=== PATIENT | female | born 1965 | race Caucasian/White ===

== ENCOUNTER → 2017-11-22 | Outpatient (CLI) | payer OTHER ==
--- NOTE | 2017-11-23 08:57 | MM ---
Reason for exam: clinical finding. Last mammogram was performed 7 years ago. History: Benign cyst aspiration of the left breast, 2004. Took estrogen for 4 years beginning at age 24. Physical Findings: Nurse Summary: 1cm nodule in the right breast at 6 o'clock (nurse je). MG 3D Diag Mammo W/Cad SHAILA Bilateral CC and MLO view(s) were taken. Prior study comparison: December 22, 2014, mammogram. March 12, 2014, mammogram. The breast tissue is heterogeneously dense. This may lower the sensitivity of mammography. Palpable marker 6 o'cock right breast. No significant new findings when compared with previous films. These results were verbally communicated with the patient and result sheet given to the patient on 11/22/17. ASSESSMENT: Incomplete: need additional imaging evaluation, BI-RAD 0 RECOMMENDATION: Ultrasound of the right breast.
--- NOTE | 2017-11-23 09:01 | USB ---
Reason for exam: additional evaluation requested from abnormal screening. History: Benign cyst aspiration of the left breast, 2004. Took estrogen for 4 years beginning at age 24. US Breast RT Right breast ultrasound includes all four quadrants, the retroareolar region and axilla. Finding demonstrates a 1.2 x 0.5 x 0.7cm mixed lesion at 6 o'clock corresponds to the palpable for which a biopsy is recommended and a 0.9 x 0.5 x 1.4cm solid lesion at 8 o'clock for which a biopsy is recommended. These results were verbally communicated with the patient and result sheet given to the patient on 11/22/17. ASSESSMENT: Suspicious, BI-RAD 4 RECOMMENDATION: Surgical consultation and ultrasound core biopsy of the right breast. Called Dr. Williamson with mammographic findings and has scheduled an appointment for the patient for 12/07/[address] Lauren Youssef ([place]). PRELIMINARY REPORT CALLED AND FAXED TO DR. YOUSSEF ON 11/23/17.
== END | disposition home or self-care (01) ==
LOC: RADMAMWWP 07:28
PROVIDERS: ATTEND Family Medicine
DX: N63.14 Unspecified lump in the right breast, lower inner quadrant (principal); R92.8 Other abnormal and inconclusive findings on diagnostic imaging of breast
CPT/HCPCS: 77066; 76641; G0279

== ENCOUNTER → 2017-12-10 | Day surgery (SDC) | payer OTHER ==
[2017-12-10 11:52] VITALS: RESP 16; TEMP 97.8; BMI 24.7
[2017-12-10 13:00] VITALS: BP 118/80; PULSE 66
--- NOTE | 2017-12-10 13:20 | MM ---
EXAMINATION TYPE: MG diagnostic mammo RT wo CAD, US biopsy breast VAD RT DATE OF EXAM: 12/10/2017 CLINICAL HISTORY: R92.8 ABNORMAL MAMMOGRAM. Abnormal ultrasound TECHNIQUE: Ultrasound guided core biopsy of right breast with clip placement and follow-up two-view mammogram. COMPARISON: Prior mammogram and ultrasound November 22, 2017 and older studies FINDINGS: The procedure of ultrasound guided core biopsy was explained to the patient. Benefits, alternatives, and risks were discussed. An informed consent was then obtained. The patient was placed in supine positioning for imaging and for the procedure. Preprocedure imaging redemonstrated oval shaped vague slightly hypoechoic area 8:00 position measuring 1 cm on long axis. No definitive area could be redemonstrated at 6:00 position even in scanning over patient's presumed palpable abnormality. The overlying skin was prepped and draped in usual sterile fashion. Lidocaine buffered with bicarbonate was used as anesthetic into the skin and subcutaneous tissue up to area of concern in the right breast 8:00 position. . Under ultrasound guidance, a 12-gauge vacuum assisted biopsy gun device was used to obtain 2 core samples. Following this, a biopsy clip was left in lesion. Following this repeat imaging of 6:00 position showed normal tissue without suspicious mass to warrant biopsy currently. 6:00 lesion was canceled for biopsy. The patient tolerated the procedure well without any immediate complication. The patient was kept in the radiology department for short stay after the procedure and then discharged home in stable condition. Postprocedure mammogram shows successful deployment of clip. IMPRESSION: Successful, uncomplicated ultrasound guided core biopsy of area of concern in the right breast 8:00 position, full pathology results to follow. Low index of suspicion noted at time of procedure. Pathology Results: Benign BREAST, RIGHT, CORE BIOPSY: FIBROCYSTIC CHANGES INCLUDING CYSTS, FIBROSIS, APOCRINE METAPLASIA AND SCLEROSING ADENOSIS WITH MICROCALCIFICATIONS. Recommendation Follow up ultrasound of the right breast in 6 months. TREMAYNE
== END ==
LOC: RADUSWWP 11:19
PROVIDERS: ATTEND Surgery
DX: N60.31 Fibrosclerosis of right breast (principal); N60.81 Other benign mammary dysplasias of right breast; N60.21 Fibroadenosis of right breast; R92.0 Mammographic microcalcification found on diagnostic imaging of breast; Z88.0 Allergy status to penicillin; Z88.2 Allergy status to sulfonamides; Z88.8 Allergy status to other drugs, medicaments and biological substances
CPT/HCPCS: 88305; 77065; 19083; A4648; J2001

== ENCOUNTER → 2018-08-06 | Outpatient (CLI) | payer OTHER ==
--- NOTE | 2018-08-07 09:21 | USB ---
Reason for exam: clinical finding. History: Benign US biopsy breast VAD RT of the right breast, December 10, 2017. Benign cyst aspiration of the left breast, 2004. Took estrogen for 4 years beginning at age 24. Indicated problem(s): palpable abnormality in the right breast. Physical Findings: Nurse Summary: 1cm nodule at 9 'clock movable (nurse dw). US Breast RT Right complete breast ultrasound includes all four quadrants, the retroareolar region and axilla. Finding demonstrates no cystic or solid lesion seen. These results were verbally communicated with the patient and result sheet given to the patient on 08/06/18. ASSESSMENT: Benign, BI-RAD 2 RECOMMENDATION: Routine screening mammogram of both breasts in 4 months. Back on schedule.
== END | disposition home or self-care (01) ==
LOC: RADUSWWP 14:52
PROVIDERS: ATTEND Family Medicine
DX: N64.9 Disorder of breast, unspecified (principal)

== ENCOUNTER 2018-09-05 13:53 | Emergency (ER) | payer OTHER ==
[2018-09-05 14:19] VITALS: BP 140/78
[2018-09-05] MEDS ORDERED: ONDANSETRON 4 MG/2 ML VIAL IVP STA (14:28)
[2018-09-05] MEDS ORDERED: SODIUM CHLORIDE 0.9% 1,000 ML IV STA (14:28)
[2018-09-05] MEDS ORDERED: MAG HYDROX/AL HYDROX/SIMETH 30 ML, HYOSCYAMINE ELIXIR 10 ML, CIMETIDINE HCL 300 MG, LID... PO STA ×4 (14:29)
[2018-09-05] MEDS ORDERED: FAMOTIDINE 20 MG/2 ML VIAL IV STA (14:29)
--- NOTE | 2018-09-05 14:35 | ED ---
Abdominal Pain HPI - General Chief Complaint: Abdominal Pain Stated Complaint: abd pain Time Seen by Provider: 09/05/18 14:20 Source: patient, RN notes reviewed Mode of arrival: ambulatory Limitations: no limitations - History of Present Illness Initial Comments: 52-year-old female presents to the emergency Department chief complaint of abdominal pain. Patient states started on Sunday and has progressed. It is worse when she lays down. She does get a few minutes relief after eating but then comes back worse. Patient states that she recently started taking Aleve secondary to tennis elbow. Patient states that she also was recent steroids. Patient complains of epigastric discomfort which is nonradiating. She states that she does have a history of reflux but only does dietary modifications has not been on any medications. She states she has mild constipation with no recent diarrhea or melena hematochezia. Patient denies any dysuria hematuria she's had a prior hysterectomy no other abdominal surgeries. - Related Data Home Medications Medication Instructions Recorded Confirmed diphenhydrAMINE [Benadryl] 50 mg PO HS PRN 09/05/18 09/05/18 Previous Rx's Medication Instructions Recorded Omeprazole 40 mg PO DAILY #14 capsule. 09/05/18 Allergies Allergy/AdvReac Type Severity Reaction Status Date / Time Penicillins Allergy Swelling Verified 09/05/18 14:47 povidone-iodine Allergy Rash/Hives Verified 09/05/18 14:47 [From Betadine] soap [From Betadine] Allergy Rash/Hives Verified 09/05/18 14:47 Sulfa (Sulfonamide Allergy Rash/Hives Verified 09/05/18 14:47 Antibiotics) Review of Systems ROS Statement: Those systems with pertinent positive or pertinent negative responses have been documented in the HPI. ROS Other: All systems not noted in ROS Statement are negative. Past Medical History Past Medical History: Atrial Fibrillation, GERD/Reflux, Osteoarthritis (OA) History of Any Multi-Drug Resistant Organisms: None Reported Past Surgical History: Hernia Repair, Hysterectomy Additional Past Surgical History / Comment(s): skin cancer to back Past Anesthesia/Blood Transfusion Reactions: Motion Sickness Past Psychological History: No Psychological Hx Reported Smoking Status: Former smoker General Exam Limitations: no limitations General appearance: alert, in no apparent distress Head exam: Present: atraumatic, normocephalic, normal inspection Eye exam: Present: normal appearance, PERRL, EOMI. Absent: scleral icterus, conjunctival injection, periorbital swelling Respiratory exam: Present: normal lung sounds bilaterally. Absent: respiratory distress, wheezes, rales, rhonchi, stridor Cardiovascular Exam: Present: regular rate, normal rhythm, normal heart sounds. Absent: systolic murmur, diastolic murmur, rubs, gallop, clicks GI/Abdominal exam: Present: soft, tenderness (Minimal epigastric), normal bowel sounds. Absent: distended, guarding, rebound, rigid Back exam: Absent: CVA tenderness (R), CVA tenderness (L) Skin exam: Present: warm, dry, intact, normal color. Absent: rash Course Vital Signs 09/05/18 14:15 Temperature 98.2 F Pulse Rate 67 Respiratory 18 Rate Blood Pressure 140/78 O2 Sat by Pulse 99 Oximetry Medical Decision Making - Medical Decision Making 52-year-old female sent upper epigastric discomfort. Patient did have relief from GI cocktail. Patient has normal lab work x-ray shows mild constipation otherwise nonspecific. Patient will be started on omeprazole 40 mg once a little follow-up Dr. Young for possible EGD in which she seen in fast we discussed return parameters and dietary changes. - Lab Data Result diagrams: 09/05/18 14:30 09/05/18 14:30 Lab Results 09/05/18 09/05/18 09/05/18 Range/Units 14:30 14:30 14:30 WBC 6.5 (3.8-10.6) k/uL RBC 4.52 (3.80-5.40) m/uL Hgb 13.3 (11.4-16.0) gm/dL Hct 42.5 (34.0-46.0) % MCV 94.0 (80.0-100.0) fL MCH 29.5 (25.0-35.0) pg MCHC 31.4 (31.0-37.0) g/dL RDW 12.6 (11.5-15.5) % Plt Count 233 (150-450) k/uL Neutrophils % 64 % Lymphocytes % 22 % Monocytes % 6 % Eosinophils % 6 % Basophils % 1 % Neutrophils # 4.1 (1.3-7.7) k/uL Lymphocytes # 1.4 (1.0-4.8) k/uL Monocytes # 0.4 (0-1.0) k/uL Eosinophils # 0.4 (0-0.7) k/uL Basophils # 0.1 (0-0.2) k/uL Sodium 140 (137-145) mmol/L Potassium 4.2 (3.5-5.1) mmol/L Chloride 104 (98-107) mmol/L Carbon Dioxide 28 (22-30) mmol/L Anion Gap 8 mmol/L BUN 13 (7-17) mg/dL Creatinine 0.73 (0.52-1.04) mg/dL Est GFR (CKD-EPI)AfAm >90 (>60 ml/min/1.73 sqM) Est GFR (CKD-EPI)NonAf >90 (>60 ml/min/1.73 sqM) Glucose 104 H (74-99) mg/dL Calcium 10.2 (8.4-10.2) mg/dL Total Bilirubin 0.6 (0.2-1.3) mg/dL AST 19 (14-36) U/L ALT 18 (9-52) U/L Alkaline Phosphatase 61 (38-126) U/L Total Protein 8.2 (6.3-8.2) g/dL Albumin 4.7 (3.5-5.0) g/dL Amylase 85 (30-110) U/L Lipase 239 (23-300) U/L Urine Color Light Yellow Urine Appearance Clear (Clear) Urine pH 6.5 (5.0-8.0) Ur Specific [place] 1.006 (1.001-1.035) Urine Protein Negative (Negative) Urine Glucose (UA) Negative (Negative) Urine Ketones Negative (Negative) Urine Blood Negative (Negative) Urine Nitrite Negative (Negative) Urine Bilirubin Negative (Negative) Urine Urobilinogen <2.0 (<2.0) mg/dL Ur Leukocyte Esterase Trace H (Negative) Urine RBC <1 (0-5) /hpf Urine WBC 1 (0-5) /hpf Urine Mucus Rare H (None) /hpf Disposition Clinical Impression: Gastritis Disposition: HOME SELF-CARE Condition: Stable Instructions: Gastritis (ED) Additional Instructions: Please return to the Emergency Department if symptoms worsen or any other concerns. Prescriptions: Omeprazole 40 mg PO DAILY #14 capsule.dr Is patient prescribed a controlled substance at d/c from ED?: No Referrals: Cipriano Williamson DO [Primary Care Provider] - 1-2 days Joyce Amaral MD [STAFF PHYSICIAN] - 1-2 days Time of Disposition: 15:54
[2018-09-05 15:10] LABS: Appearance,Urine Clear (Clear); Basophils # (A) 0.1 k/uL (0-0.2); Basophils % (A) 1 %; Bilirubin,Urine Negative (Negative); Blood,Urine Negative (Negative); Color,Urine Light Yellow; Eosinophils # (A) 0.4 k/uL (0-0.7); Eosinophils % (A) 6 %; Glucose,Urine (UA) Negative (Negative); HCT 42.5 % (34.0-46.0); HGB 13.3 gm/dL (11.4-16.0); Ketones,Urine Negative (Negative); Leukocyte Esterase,Urine Trace (Negative); Lymphocytes # (A) 1.4 k/uL (1.0-4.8); Lymphocytes % (A) 22 %; MCH 29.5 pg (25.0-35.0); MCHC 31.4 g/dL (31.0-37.0); Mean Platelet Volume 7.1; Monocytes # (A) 0.4 k/uL (0-1.0); Monocytes % (A) 6 %; Mucus,Urine Rare /hpf; Neutrophils # (A) 4.1 k/uL (1.3-7.7); Neutrophils % (A) 64 %; Nitrite,Urine Negative (Negative); PH, Urine 6.5 (5.0-8.0); Platelet Count 233 k/uL (150-450); Protein,Urine Negative (Negative); RBC 4.52 m/uL (3.80-5.40); RBC,Urine <1 /hpf (0-5); RDW 12.6 % (11.5-15.5); Specific Gravity,Urine 1.006 (1.001-1.035); Urobilinogen,Urine <2.0 mg/dL (<2.0); WBC 6.5 k/uL (3.8-10.6); WBC,Urine 1 /hpf (0-5)
--- NOTE | 2018-09-05 15:23 | XR ---
EXAMINATION TYPE: XR KUB DATE OF EXAM: 09/05/2018 COMPARISON: NONE HISTORY: Epigastric pain TECHNIQUE: One view abdominal series FINDINGS: The osseous structures are intact. The bowel gas pattern is nonspecific. Lung bases are clear. Soft tissue ossification along the right femoral greater trochanter. Curvature of the spine noted. IMPRESSION: 1. Nonspecific abdomen.
[2018-09-05 15:26] LABS: ALT 18 U/L (9-52); AST 19 U/L (14-36); Albumin 4.7 g/dL (3.5-5.0); Alkaline Phosphatase 61 U/L (38-126); Amylase 85 U/L (30-110); Anion Gap 8 mmol/L; Blood Urea Nitrogen 13 mg/dL (7-17); Calcium 10.2 mg/dL (8.4-10.2); Carbon Dioxide 28 mmol/L (22-30); Chloride 104 mmol/L (98-107); Glucose 104 mg/dL (74-99); Lipase 239 U/L (23-300); Potassium 4.2 mmol/L (3.5-5.1); Sodium 140 mmol/L (137-145); Total Bilirubin 0.6 mg/dL (0.2-1.3); Total Protein 8.2 g/dL (6.3-8.2)
[2018-09-05 16:00] VITALS: PULSE 70; RESP 16; TEMP 98
== END 2018-09-05 16:00 | disposition home or self-care (01) ==
LOC: EC 13:53
DX: K29.70 Gastritis, unspecified, without bleeding (principal); K59.00 Constipation, unspecified; K21.9 Gastro-esophageal reflux disease without esophagitis; Z87.891 Personal history of nicotine dependence; Z85.828 Personal history of other malignant neoplasm of skin; Z90.710 Acquired absence of both cervix and uterus; Z98.890 Other specified postprocedural states; Z88.0 Allergy status to penicillin; Z88.2 Allergy status to sulfonamides; Z88.8 Allergy status to other drugs, medicaments and biological substances; Z91.048 Other nonmedicinal substance allergy status
CPT/HCPCS: 36415; 80053; 82150; 83690; 85025; 81001; 74018; 99284; 96374; 96375; 96361; J2405

== ENCOUNTER → 2019-03-20 | Outpatient (CLI) | payer OTHER ==
--- NOTE | 2019-03-21 09:58 | MM ---
Reason for exam: screening (asymptomatic). Last mammogram was performed 1 year and 3 months ago. History: Family history of breast cancer in paternal aunt. Benign US biopsy breast VAD RT of the right breast, December 10, 2017. Benign cyst aspiration of the left breast, 2004. Took estrogen for 4 years beginning at age 24. Physical Findings: A clinical breast exam by your physician is recommended on an annual basis and results should be correlated with mammographic findings. MG 3D Screening Mammo W/Cad Bilateral CC and MLO view(s) were taken. Prior study comparison: December 10, 2017, right breast MG diagnostic mammo RT wo CAD. November 22, 2017, bilateral MG 3d diag mammo w/cad SHAILA. The breast tissue is heterogeneously dense. This may lower the sensitivity of mammography. No significant changes when compared with prior studies. ASSESSMENT: Benign, BI-RAD 2 RECOMMENDATION: Routine screening mammogram of both breasts in 1 year. Manage patient on a clinical basis.
== END ==
LOC: RADMAMWWP 11:04
PROVIDERS: ATTEND Family Medicine
DX: Z12.31 Encounter for screening mammogram for malignant neoplasm of breast (principal)
CPT/HCPCS: 77063; 77067

== ENCOUNTER → 2020-08-04 | Outpatient (CLI) | payer OTHER ==
--- NOTE | 2020-08-04 17:01 | ECHOF ---
Referral Reason:R07.9 Chest pain, unspecified MEASUREMENTS -------- HEIGHT: 160.0 cm WEIGHT: 61.2 kg BP: RVIDd: 3.3 cm (< 3.3) IVSd: 1.2 cm (0.6 - 1.1) LVIDd: 3.4 cm (3.9 - 5.3) LVPWd: 1.4 cm (0.6 - 1.1) IVSs: 1.5 cm LVIDs: 2.4 cm LVPWs: 1.7 cm LAESV Index (A-L): 25.85 ml/m Ao Diam: 2.7 cm (2.0 - 3.7) AV Cusp: 1.8 cm (1.5 - 2.6) MV EXCURSION: 18.270 mm (> 18.000) MV EF SLOPE: 70 mm/s (70 - 150) EPSS: 0.1 cm MV E Velasquez: 0.80 m/s MV DecT: 229 ms MV A Velasquez: 0.36 m/s MV E/A Ratio: 2.22 RAP: 5.00 mmHg RVSP: 29.26 mmHg FINDINGS -------- This was a technically adequate study. The left ventricular size is normal. There is mild concentric left ventricular hypertrophy. Overa ll left ventricular systolic function is normal with, an EF between 55 - 60 %. The diastolic fillin g pattern is normal for the age of the patient 7.24. The right ventricle is normal in size. Normal LA size by volume 22+/-6 ml/m2. The right atrial size is normal. Interatrial and interventricular septum intact. The aortic valve is trileaflet and appears structurally normal. There is no evidence of aortic regu rgitation. There is no evidence of aortic stenosis. Mild mitral regurgitation is present. Mild tricuspid regurgitation present. There is no evidence of pulmonary hypertension. The right v entricular systolic pressure, as measured by Doppler, is 29.26mmHg. Trace/mild (physiologic) pulmonic regurgitation. The aortic root size is normal. The inferior vena cava is mildly dilated. There is no pericardial effusion. CONCLUSIONS -------- 1. The left ventricular size is normal. 2. There is mild concentric left ventricular hypertrophy. 3. Overall left ventricular systolic function is normal with, an EF between 55 - 60 %. 4. The diastolic filling pattern is normal for the age of the patient 7.24 5. Mild mitral regurgitation is present. 6. Mild tricuspid regurgitation present. 7. Trace/mild (physiologic) pulmonic regurgitation. 8. The inferior vena cava is mildly dilated. SERVER SOFTWARE ENGINEER: Mary Redd RDCS
--- NOTE | 2020-08-04 17:39 | EST ---
EXERCISE STRESS AGE: 54 SEX: Female HT: 5'3" WT: 135 pounds PROTOCOL: Rashid. STAGE: III DURATION OF EXERCISE: 9:00 HEART RATE REST: 65 BLOOD PRESSURE REST: 122/78 MAXIMUM HEART RATE ACHIEVED: 141 MAXIMUM BLOOD PRESSURE: 148/73 85% MPHR: 141 100% MPHR: 166 METS: 10.5 INDICATIONS: Chest pain. CLINICAL INFORMATION: Baseline EKG shows sinus rhythm, normal axis, normal intervals. Patient exercised on Rashid protocol for a total of 9 minutes, achieving 10 METS, 85% of predicted maximal heart rate, without chest pain. At peak exercise there was 1.[address]-segment depression noted in the inferolateral lead. CONCLUSIONS: 1. Good exercise tolerance. 2. Abnormal stress test by EKG criteria. MMANTELMOL / IJN: [id number] /
== END | disposition home or self-care (01) ==
LOC: RADNMMAIN 10:31
PROVIDERS: ATTEND Family Medicine
DX: R94.39 Abnormal result of other cardiovascular function study (principal); I08.8 Other rheumatic multiple valve diseases
CPT/HCPCS: 93017; 93306

== ENCOUNTER 2022-02-11 14:38 | Emergency (ER) | payer OTHER ==
[2022-02-11] MEDS ORDERED: SODIUM CHLORIDE 0.9% 1,000 ML IV STA ×2 (16:14→19:03)
[2022-02-11] MEDS ORDERED: ONDANSETRON 4 MG/2 ML VIAL IVP STA (16:14)
[2022-02-11] MEDS ORDERED: DICYCLOMINE 10 MG/ML 2 ML AMP IM STA (16:14)
--- NOTE | 2022-02-11 16:22 | ED ---
General Adult HPI - General Chief complaint: Abdominal Pain Stated complaint: Abd pain Time Seen by Provider: 02/11/22 16:04 Source: patient, RN notes reviewed Mode of arrival: ambulatory Limitations: no limitations - History of Present Illness Initial comments: 56-year-old female presents to the emergency Department with complaints of mid abdominal cramping, onset . Patient states she had one episode of vomiting in the early hours of Sunday morning with ongoing episodes of cramping discomfort. Patient states she took a stool softener thinking perhaps she was constipated. Reports having a bowel movement yesterday followed by a few episo grant of runny diarrhea. States she has continued to have intermittent episodes of cramping discomfort. States oral intake worsens her discomfort. Denies fever, chills, headache, chest pain, shortness of breath, cough, hematochezia, hematuria, or dysuria. - Related Data Home Medications Medication Instructions Recorded Confirmed diphenhydrAMINE [Benadryl] 50 mg PO HS PRN 09/05/18 09/05/18 Previous Rx's Medication Instructions Recorded Omeprazole 40 mg PO DAILY #14 capsule. 09/05/18 Nitrofurantoin Macrocrystal 100 mg PO BID 5 Days #10 capsule 02/11/22 [Nitrofurantoin] Ondansetron Odt [Zofran Odt] 4 mg PO Q8HR PRN #10 tab 02/11/22 Allergies Allergy/AdvReac Type Severity Reaction Status Date / Time Penicillins Allergy Swelling Verified 02/11/22 15:01 povidone-iodine Allergy Rash/Hives Verified 02/11/22 15:01 [From Betadine] soap [From Betadine] Allergy Rash/Hives Verified 02/11/22 15:01 Sulfa (Sulfonamide Allergy Rash/Hives Verified 02/11/22 15:01 Antibiotics) Review of Systems ROS Statement: Those systems with pertinent positive or pertinent negative responses have been documented in the HPI. ROS Other: All systems not noted in ROS Statement are negative. Past Medical History Past Medical History: Atrial Fibrillation, GERD/Reflux, Osteoarthritis (OA) History of Any Multi-Drug Resistant Organisms: None Reported Past Surgical History: Hernia Repair, Hysterectomy Additional Past Surgical History / Comment(s): skin cancer to back Past Anesthesia/Blood Transfusion Reactions: Motion Sickness Past Psychological History: No Psychological Hx Reported Smoking Status: Never smoker Past Alcohol Use History: Occasional Past Drug Use History: None Reported General Exam Limitations: no limitations (Well-developed, well-nourished female in no acute distress. Initial temperature 97.7, pulse 79, respirations 16, blood pressure 126/78, pulse ox 100% on room air.) General appearance: alert, in no apparent distress Eye exam: Present: normal appearance. Absent: scleral icterus, conjunctival injection ENT exam: Present: normal exam, normal oropharynx, mucous membranes moist Neck exam: Present: normal inspection, full ROM. Absent: tenderness, meningismus, lymphadenopathy Respiratory exam: Present: normal lung sounds bilaterally. Absent: respiratory distress, wheezes, rales, rhonchi, stridor Cardiovascular Exam: Present: regular rate, normal rhythm, normal heart sounds. Absent: systolic murmur, diastolic murmur, rubs, gallop, clicks GI/Abdominal exam: Present: soft, normal bowel sounds. Absent: distended, tenderness, guarding, rebound, rigid Extremities exam: Present: normal inspection, full ROM, normal capillary refill. Absent: tenderness, pedal edema, joint swelling, calf tenderness Back exam: Present: normal inspection. Absent: CVA tenderness (R), CVA te nderness (L) Neurological exam: Present: alert, oriented X3, CN II-XII intact Psychiatric exam: Present: normal affect, normal mood Skin exam: Present: warm, dry, intact, normal color. Absent: rash Course Vital Signs 02/11/22 02/11/22 15:01 18:44 Temperature 97.7 F 98.2 F Pulse Rate 79 67 Respiratory 16 14 Rate Blood Pressure 126/78 120/65 O2 Sat by Pulse 100 99 Oximetry - Reevaluation(s) Reevaluation #1: 02/11/22 18:00 Patient appears to be resting comfortably, however states her pain is relatively unchanged does feel that it is tolerable at this time. No nausea or vomiting currently. Patient does wish to proceed with CT. 02/11/22 19:00 Patient's iodine ALLERGY was discussed. States she thinks she has had CT previously with contrast however is uncertain therefore she will be premedicated. 02/11/22 20:[address] without adverse reaction. Findings show gastroenteritis consistent with physical exam and patient history. She is updated on results and will be discharged home with a prescription for Zofran. We did discuss results of her urinalysis. As she is asymptomatic at this time, she will be prescribed an antibiotic which will be sent to the pharmacy and instructed to take it if she develops symptoms within the next 24-48 hours. Patient verbalizes understanding and agrees with this plan. Medical Decision Making - Medical Decision Making 56-year-old female with a past medical history of GERD and atrial fibrillation p resents to the emergency department for evaluation of mid abdominal cramping onset 48 hours prior to arrival. Upon assessment, patient is well-appearing and in no acute distress. Her abdomen is soft with minimal tenderness upon palpation. Describes her discomfort as a cramping sensation. Does complain of accompanying nausea and vomiting. Patient was given IV fluids, Bentyl, and Zofran with improvement. Laboratory studies were reviewed and are unremarkable. Urinalysis does show large leukocyte esterase with [address] of the abdomen and pelvis shows possible gastroenteritis. Patient will be discharged home with a prescription for Zofran as well as an antibiotic for evidence of UTI. Instructed to take it if she develops symptoms. Encouraged follow-up with her PCP for recheck in 48 hours. Return parameters discussed in detail. Patient verbalizes understanding and agrees with this plan. Attending: Korey. - Lab Data Result diagrams: 02/11/22 16:29 02/11/22 16:29 Lab Results 02/11/22 02/11/22 02/11/22 Range/Units 16:29 16:29 16:29 WBC 6.5 (3.8-10.6) k/uL RBC 4.23 (3.80-5.40) m/uL Hgb 13.6 (11.4-16.0) gm/dL Hct 41.0 (34.0-46.0) % MCV 97.0 (80.0-100.0) fL MCH 32.1 (25.0-35.0) pg MCHC 33.1 (31.0-37.0) g/dL RDW 13.5 (11.5-15.5) % Plt Count 237 (150-450) k/uL MPV 7.6 Neutrophils % 68 % Lymphocytes % 20 % Monocytes % 6 % Eosinophils % 3 % Basophils % 1 % Neutrophils # 4.4 (1.3-7.7) k/uL Lymphocytes # 1.3 (1.0-4.8) k/uL Monocytes # 0.4 (0-1.0) k/uL Eosinophils # 0.2 (0-0.7) k/uL Basophils # 0.0 (0-0.2) k/uL Sodium 139 (137-145) mmol/L Potassium 4.1 (3.5-5.1) mmol/L Chloride 104 (98-107) mmol/L Carbon Dioxide 29 (22-30) mmol/L Anion Gap 6 mmol/L BUN 12 (7-17) mg/dL Creatinine 0.69 (0.52-1.04) mg/dL Est GFR (CKD-EPI)AfAm >90 (>60 ml/min/1.73 sqM) Est GFR (CKD-EPI)NonAf >90 (>60 ml/min/1.73 sqM) Glucose 99 (74-99) mg/dL Plasma Lactic Acid Adarsh (0.7-2.0) mmol/L Calcium 9.2 (8.4-10.2) mg/dL Total Bilirubin 0.8 (0.2-1.3) mg/dL AST 19 (14-36) U/L ALT 12 (4-34) U/L Alkaline Phosphatase 57 (38-126) U/L Total Protein 7.5 (6.3-8.2) g/dL Albumin 4.3 (3.5-5.0) g/dL Lipase 115 (23-300) U/L Urine Color Light Yellow Urine Appearance Cloudy H (Clear) Urine pH 5.5 (5.0-8.0) Ur Specific [place] 1.007 (1.001-1.035) Urine Protein Negative (Negative) Urine Glucose (UA) Negative (Negative) Urine Ketones Negative (Negative) Urine Blood Negative (Negative) Urine Nitrite Negative (Negative) Urine Bilirubin Negative (Negative) Urine Urobilinogen <2.0 (<2.0) mg/dL Ur Leukocyte Esterase Large H (Negative) Urine RBC 1 (0-5) /hpf Urine WBC 38 H (0-5) /hpf Ur Squamous Epith Cells 1 (0-4) /hpf 02/11/22 Range/Units 16:29 WBC (3.8-10.6) k/uL RBC (3.80-5.40) m/uL Hgb (11.4-16.0) gm/dL Hct (34.0-46.0) % MCV (80.0-100.0) fL MCH (25.0-35.0) pg MCHC (31.0-37.0) g/dL RDW (11.5-15.5) % Plt Count (150-450) k/uL MPV Neutrophils % % Lymphocytes % % Monocytes % % Eosinophils % % Basophils % % Neutrophils # (1.3-7.7) k/uL Lymphocytes # (1.0-4.8) k/uL Monocytes # (0-1.0) k/uL Eosinophils # (0-0.7) k/uL Basophils # (0-0.2) k/uL Sodium (137-145) mmol/L Potassium (3.5-5.1) mmol/L Chloride (98-107) mmol/L Carbon Dioxide (22-30) mmol/L Anion Gap mmol/L BUN (7-17) mg/dL Creatinine (0.52-1.04) mg/dL Est GFR (CKD-EPI)AfAm (>60 ml/min/1.73 sqM) Est GFR (CKD-EPI)NonAf (>60 ml/min/1.73 sqM) Glucose (74-99) mg/dL Plasma Lactic Acid Adarsh 0.7 (0.7-2.0) mmol/L Calcium (8.4-10.2) mg/dL Total Bilirubin (0.2-1.3) mg/dL AST (14-36) U/L ALT (4-34) U/L Alkaline Phosphatase (38-126) U/L Total Protein (6.3-8.2) g/dL Albumin (3.5-5.0) g/dL Lipase (23-300) U/L Urine Color Urine Appearance (Clear) Urine pH (5.0-8.0) Ur Specific [place] (1.001-1.035) Urine Protein (Negative) Urine Glucose (UA) (Negative) Urine Ketones (Negative) Urine Blood (Negative) Urine Nitrite (Negative) Urine Bilirubin (Negative) Urine Urobilinogen (<2.0) mg/dL Ur Leukocyte Esterase (Negative) Urine RBC (0-5) /hpf Urine WBC (0-5) /hpf Ur Squamous Epith Cells (0-4) /hpf - Radiology Data Radiology results: report reviewed, image reviewed CT of the abdomen and pelvis with contrast was obtained. Report was reviewed in its entirety. Impression per Dr. Alvares is there is mild abdominal ascites. There are multiple loops of jejunum in the mid abdomen with wall thickening that could be some gastroenteritis. No free air. Mild atelectasis at the lung bases. Disposition Clinical Impression: Abdominal pain, Nausea & vomiting, Urinary tract infection, Gastroenteritis Disposition: HOME SELF-CARE Condition: Stable Instructions (If sedation given, give patient instructions): Urinary Tract Infection in Women (ED), Gastroenteritis (ED) Additional Instructions: Take Zofran if needed for upset stomach. Antibiotic prescribed for UTI. Take if you become symptomatic as discussed. Consider a bland diet for the first 48 hours, then progress as tolerated. Follow-up with your PCP for a recheck in 48-72 hours. Return to the emergency department with any new, worsening, or concerning sy mptoms. Prescriptions: Nitrofurantoin Macrocrystal [Nitrofurantoin] 100 mg PO BID 5 Days #10 capsule Ondansetron Odt [Zofran Odt] 4 mg PO Q8HR PRN #10 tab PRN Reason: Nausea Is patient prescribed a controlled substance at d/c from ED?: No Referrals: Cipriano Williamson DO [Primary Care Provider] - 1-2 days Time of Disposition: 20:53
[2022-02-11 16:53] LABS: Basophils % (A) 1 %; Eosinophils # (A) 0.2 k/uL (0-0.7); Eosinophils % (A) 3 %; HGB 13.6 gm/dL (11.4-16.0); Lymphocytes # (A) 1.3 k/uL (1.0-4.8); Lymphocytes % (A) 20 %; MCH 32.1 pg (25.0-35.0); MCHC 33.1 g/dL (31.0-37.0); Mean Platelet Volume 7.6; Monocytes # (A) 0.4 k/uL (0-1.0); Monocytes % (A) 6 %; Neutrophils # (A) 4.4 k/uL (1.3-7.7); Neutrophils % (A) 68 %; Platelet Count 237 k/uL (150-450); RBC 4.23 m/uL (3.80-5.40); RDW 13.5 % (11.5-15.5); WBC 6.5 k/uL (3.8-10.6)
[2022-02-11 17:10] LABS: Appearance,Urine Cloudy (Clear); Bilirubin,Urine Negative (Negative); Blood,Urine Negative (Negative); Color,Urine Light Yellow; Glucose,Urine (UA) Negative (Negative); Ketones,Urine Negative (Negative); Leukocyte Esterase,Urine Large (Negative); Nitrite,Urine Negative (Negative); PH, Urine 5.5 (5.0-8.0); Protein,Urine Negative (Negative); RBC,Urine 1 /hpf (0-5); Specific Gravity,Urine 1.007 (1.001-1.035); Squamous Epithelial Cell,Urine 1 /hpf (0-4); Urobilinogen,Urine <2.0 mg/dL (<2.0); WBC,Urine 38 /hpf (0-5)
[2022-02-11 17:13] LABS: African American GFR (CKD) >90 (>60 ml/min/1.73 sqM); Albumin 4.3 g/dL (3.5-5.0); Blood Urea Nitrogen 12 mg/dL (7-17); Calcium 9.2 mg/dL (8.4-10.2); Carbon Dioxide 29 mmol/L (22-30); Lipase 115 U/L (23-300); Non-African American GFR(CKD) >90 (>60 ml/min/1.73 sqM); Potassium 4.1 mmol/L (3.5-5.1); Sodium 139 mmol/L (137-145); Total Bilirubin 0.8 mg/dL (0.2-1.3); Total Protein 7.5 g/dL (6.3-8.2)
[2022-02-11 17:29] LABS: ALT 12 U/L (4-34); AST 19 U/L (14-36); Alkaline Phosphatase 57 U/L (38-126); Anion Gap 6 mmol/L; Chloride 104 mmol/L (98-107); Glucose 99 mg/dL (74-99)
[2022-02-11 18:47] VITALS: BP 120/65; PULSE 67; RESP 14; TEMP 98.2
[2022-02-11] MEDS ORDERED: FAMOTIDINE 20 MG/2 ML VIAL IV STA (19:03)
[2022-02-11] MEDS ORDERED: methylPREDNISolone SOD SUCCI 125 MG/2 ML VIAL IV STA (19:03)
[2022-02-11] MEDS ORDERED: diphenhydrAMINE 50 MG/ML 1 ML VIAL IVP STA (19:03)
--- NOTE | 2022-02-11 20:13 | CT ---
EXAMINATION TYPE: CT abdomen pelvis w con DATE OF EXAM: 02/11/2022 COMPARISON: None HISTORY: Abdominal pain, nausea, vomiting and diarrhea. CT DLP: 666.7 mGycm Automated exposure control for dose reduction was used. CONTRAST: Performed with IV Contrast, patient injected with 100ml mL of Isovue 300. Images obtained from the diaphragm to the floor the pelvis with IV contrast. There are some mild subsegmental atelectasis at the lung bases. No pleural effusion. Heart size is no rmal. No pericardial effusion. There are a few small hepatic cysts up to 1.5 cm. Spleen is intact. Th ere is no pancreatic mass. The stomach is intact. Gallbladder appears normal. There is no adrenal mass. Kidneys show satisfactory contrast opacification. There is no hydronephrosi s. Ureters are not dilated. There is low-density free fluid in the pelvis. Bladder distends smoothly. There is no retroperitoneal adenopathy. There is some mild wall thickening of loops of small bowel in the mid abdomen. No evidence of a bowel obstruction. Appendix not seen. No sign thickened appendix. The bony structures are intact. Bony pel vis is intact. Hip joints appear normal. Sacroiliac joints are normal. Lumbar vertebrae have normal a lignment. Disc spaces are fairly normal. IMPRESSION: There is mild abdominal ascites. There are multiple loops of jejunum in the mid abdomen with wall thi ckening that could be some gastroenteritis. No free air. Mild atelectasis at the lung bases.
== END 2022-02-11 21:10 | disposition home or self-care (01) ==
LOC: EC 14:38
DX: K52.9 Noninfective gastroenteritis and colitis, unspecified (principal); N39.0 Urinary tract infection, site not specified; K21.9 Gastro-esophageal reflux disease without esophagitis; Z79.899 Other long term (current) drug therapy
CPT/HCPCS: 36415; 80053; 83605; 83690; 85025; 81001; 87086; 74177; 99284; 96374; 96375 ×3; 96361 ×4; J1200; J0500; J2930; J2405; Q9967

== ENCOUNTER 2025-06-05 06:24 | Day surgery (SDC) | payer OTHER ==
[2025-06-05] MEDS ORDERED: LIDOCAINE 1% (10MG/ML) FOR IV START INTRADERMA PRN (06:49)
[2025-06-05 06:54] VITALS: RESP 16; TEMP 96.9
[2025-06-05] MEDS: LACTATED RINGERS 1,000 ML IV SCH (06:59)
[2025-06-05] MEDS: IV FLUID CONTINUATION 1,000 ML IV ONE (07:00)
[2025-06-05] MEDS ORDERED: PROPOFOL 10 MG/ML 20 ML VIAL IV ONE (07:24)
[2025-06-05] MEDS ORDERED: fentaNYL (PF) 50 MCG/ML 2 ML AMP ONE (07:24)
[2025-06-05] MEDS ORDERED: LIDOCAINE 1% INJ 10MG/ML (20 ML MDV) ONE (07:24)
[2025-06-05] MEDS ORDERED: MIDAZOLAM 2 MG/2 ML VIAL ONE (07:24)
--- NOTE | 2025-06-05 07:45 | P.PCN ---
Date of Procedure: 06/05/25 Procedure(s) Performed: Brief history: Patient is a pleasant 59-year-old white female scheduled for an elective upper endoscopy as well as colonoscopy as a part of evaluation of evaluation of epigastric pain/GERD and screening for colon cancer Procedure performed: Esophagogastroduodenoscopy with biopsy Colonoscopy Preoperative diagnosis: GERD/epigastric pain Screening for colon cancer Anesthesia: MAC Procedure: After informed consent was obtained from the patient was brought into the endoscopy unit and IV sedation was administered by anesthesia under continuous monitoring. Initially upper endoscopy was done. The Olympus GF 160 video endoscope was inserted inserted into the mouth and esophagus intubated without any difficulty and was gradually advanced into the stomach and duodenum and carefully examined. The bulb and second part of the duodenum appeared normal. The scope was then withdrawn into the stomach adequately insufflated with air and upon careful examination the antrum and body gastritis and biopsies were done from this area. Mucosa, cardia and fundus appeared normal. The scope was then withdrawn into the esophagus. The GE junction was located at 40 cm to the incisors. It appeared regular with no erythema erosions or ulcerations. Rest of the esophagus appeared normal. Patient tolerated the procedure well. At this time the patient continued to remain sedation. Initial digital rectal examination was normal. Olympus CF 160 video colonoscope was then inserted into the rectum and gradually advanced to the cecum without any difficulty. Careful examination was performed as the scope was gradually being withdrawn. The prep was excellent. The cecum, ascending colon, transverse colon, descending colon, sigmoid colon and rectum appeared normal. Retroflexion was performed in the rectum and no lesions were noted. Patient tolerated the procedure well. Impression: 1. Upper endoscopy revealed mild antral gastritis, no evidence of esophagitis or peptic ulcer disease 2. Colonoscopy was within normal limits with no evidence of colorectal neoplasia Recommendations: Findings of this examination were discussed with the patient as well as her family. With biopsy results. She was advised to increase omeprazole to 20 mg twice daily and follow antireflux measures. Recommended repeat screening colonoscopy in 10 years.
[2025-06-05 08:07] VITALS: BP 126/76; PULSE 63
== END 2025-06-05 08:25 | disposition home or self-care (01) ==
LOC: ORWHC2ENDO 06:24
PROVIDERS: ATTEND Internal Medicine Gastroenterology
DX: Z12.11 Encounter for screening for malignant neoplasm of colon (principal); K29.50 Unspecified chronic gastritis without bleeding; K21.00 Gastro-esophageal reflux disease with esophagitis, without bleeding; I48.91 Unspecified atrial fibrillation; M19.90 Unspecified osteoarthritis, unspecified site; Z88.0 Allergy status to penicillin; Z88.2 Allergy status to sulfonamides; Z79.899 Other long term (current) drug therapy; Z90.710 Acquired absence of both cervix and uterus
CPT/HCPCS: 43239; 45378; 88305